=== PATIENT | male | born 2000 | race Caucasian/White ===

== ENCOUNTER → 2019-06-25 | Outpatient (CLI) | payer BC, OTHER ==
[2019-06-25 07:32] LABS: SPERM MORPHOLOGY SENT TO REFERENC LAB
[2019-06-25 08:34] LABS: SPERM CONCENTRATION 43.1 X10^6/mL (>12.0); SPERM PROGRESSION 3; TOTAL SPERM COUNT 258.6 X10^6 (>33.0)
== END ==
LOC: LAB 06:57
PROVIDERS: ATTEND Specialist
DX: N46.9 Male infertility, unspecified (principal)
CPT/HCPCS: 89320